=== PATIENT | female | born 1970 | race Hispanic/Latino ===

== ENCOUNTER 2017-07-21 12:55 | Outpatient (CLI) | payer BC ==
[2017-07-21 13:21] LABS: Mean Platelet Volume 6.8 fL (7.4-10.4); Red Blood Cell (RBC) Count 4.74 mill/uL (4.20-5.40); White Blood Cell (WBC) Count 5.5 thou/uL (4.8-10.8)
[2017-07-21 13:54] LABS: Anion Gap 13 mmol/L (10-20); BUN (Urea Nitrogen) 8 mg/dL (7.0-18.7); Calc. Creatinine Clearance 0 mL/min (70-130); Calcium 9.4 mg/dL (7.8-10.44); Carbon Dioxide 26 mmol/L (22-29); Chloride 105 mmol/L (98-107); Estimated GFR-MDRD 72
--- NOTE | 2017-07-23 17:47 | EKG ---
Test Reason : Blood Pressure : / mmHG Vent. Rate : 084 BPM Atrial Rate : 084 BPM P-R Int : 152 ms QRS Dur : 080 ms QT Int : 404 ms P-R-T Axes : 048 102 028 degrees QTc Int : 477 ms Normal sinus rhythm Rightward axis Cannot rule out Inferior infarct , age undetermined Abnormal ECG No previous ECGs available Confirmed by GUY SANDOVAL ([id number]) on 07/23/2017 5:46:50 PM Referred By: [email or web address] Confirmed By:GUY SANDOVAL
== END 2017-07-21 12:56 | disposition home or self-care (01) ==
LOC: LABBT 12:55
PROVIDERS: ATTEND Otolaryngology Plastic Surgery within the Head & Neck
DX: Z01.812 Encounter for preprocedural laboratory examination (principal); J03.91 Acute recurrent tonsillitis, unspecified; J35.3 Hypertrophy of tonsils with hypertrophy of adenoids; J30.9 Allergic rhinitis, unspecified
CPT/HCPCS: 80048; 84703; 85027; 93005; 93010

== ENCOUNTER 2017-07-26 07:29 | Day surgery (SDC) | payer BC ==
[2017-07-21 13:28] VITALS: BMI 41.1
[2017-07-26] MEDS ORDERED: Fentanyl 100 MCG/2 ML VIAL ONE ×3 (10:13→11:09)
[2017-07-26] MEDS ORDERED: Succinylcholine Chloride 20 MG/ML 10 ml SYRINGE FS ONE (10:32)
[2017-07-26] MEDS ORDERED: Propofol 200 MG/20 ML VIAL ONE (10:32)
[2017-07-26] MEDS ORDERED: Lidocaine 2% PF 10 ML AMP (For Epidural Use) ONE (10:32)
[2017-07-26] MEDS ORDERED: Ondansetron HCl/PF 4 MG/2 ML Vial ONE (10:32)
[2017-07-26] MEDS ORDERED: Morphine 4 MG/ML Carpuject ONE (11:56)
--- NOTE | 2017-07-27 10:12 | OP ---
DATE OF PROCEDURE: 07/26/2017 PREOPERATIVE DIAGNOSES: 1. Chronic adenotonsillitis. 2. Adenotonsillar hypertrophy. POSTOPERATIVE DIAGNOSES: 1. Chronic adenotonsillitis. 2. Adenotonsillar hypertrophy. PROCEDURES PERFORMED: Tonsillectomy and adenoidectomy. SURGEON: Huey Haywood M.D. ESTIMATED BLOOD LOSS: Less than 5 mL COMPLICATIONS: None. ANESTHESIA: GETA. PROCEDURE IN DETAIL: After consent was obtained, the patient was identified, brought to the operatin g room, and placed on the operating table in the supine position. General endotracheal anesthesia an d intravenous access was obtained and we proceeded with positioning the patient for oropharyngeal landis rgery. Oropharyngeal exposure was obtained with a Margaret-Felipe mouth gag after a head drape was place d and secured with a towel clip. The Margaret-Felipe mouth gag was then suspended from the Teague tray and palatal elevation was achieved with a red rubber catheter. The right tonsil was addressed first. W e used a curved Allis to grasp the tonsil and retract it medially as an anterior pillar incision was made. The retrotonsillar fascial plane was then established and blunt dissection was performed with the suction cautery. Blood vessels were anticipated, identified, and cauterized as they were encoun tered. Ultimately, dissection was carried to the posterior tonsillar pillar mucosa which was incised hemostatically, as well as the base of tongue connection. The tonsil was then passed off as a speci men and bleeding points within the tonsillar bed were cauterized under direct visualization. We subs equently turned our attention to the contralateral side, where using a similar technique, a near demond ntical procedure was performed. Again, the tonsil was grasped and retracted medially with a curved A llis. The retrotonsillar fascial plane was established and while the anterior pillar was retracted m edially, the hemostatic blunt dissection of the tonsil with a suction cautery was performed with blo od vessels anticipated, identified, and cauterized as they were encountered. Again, dissection leena nued to the base of tongue and posterior tonsillar pillar mucosa which was incised in a hemostatic f ashion. The tonsillar beds were then carefully inspected and bleeding points were identified and cau terized with a suction cautery. After this portion of the procedure, hemostasis was completely obtai raphael. Under direct mirror visualization, we visualized the adenoid pad. Under direct mirror visualiza tion, we removed the bulk of the adenoid tissue with the adenoid curette. We then packed the nasopha rynx for an appropriate period of time with Deep-Synephrine saturated tonsillar sponges. After a alex od of observation, we removed the pack. Under indirect mirror visualization, we obtained hemostasis and vaporization of residual adenoid tissue with electrocautery. The patient's oral cavity was copio usly irrigated with iced saline and subsequently suctioned. After completion of the procedure, the n davina cavity and oropharynx were irrigated and suctioned as were the gastric contents. The patient wa s then awakened and transferred to the recovery room where the patient remained in stable condition prior to discharge to Day Stay.
== END 2017-07-26 13:00 | disposition home or self-care (01) ==
LOC: SDC 07:29
PROVIDERS: ATTEND Otolaryngology Plastic Surgery within the Head & Neck
PROC: 0CTQ0ZZ Resection of Adenoids, Open Approach (ICD-10-PCS; principal; 2017-07-26)
PROC: 0CTPXZZ Resection of Tonsils, External Approach (ICD-10-PCS; principal; 2017-07-26)
DX: J35.3 Hypertrophy of tonsils with hypertrophy of adenoids (principal); I10 Essential (primary) hypertension; Z88.9 Allergy status to unspecified drugs, medicaments and biological substances; Z79.899 Other long term (current) drug therapy
CPT/HCPCS: 88304; 96374; J0131; J2001; J2270; J2405; J2704; J3010

== ENCOUNTER 2018-11-22 08:07 | Outpatient (CLI) | payer BC | END 2018-11-22 08:08 | disposition home or self-care (01) | LOC: BICMAMMO 08:07 | PROVIDERS: ATTEND Family Medicine | DX: Z12.31 Encounter for screening mammogram for malignant neoplasm of breast (principal) | CPT/HCPCS: 77063; 77067 ==

== ENCOUNTER 2022-02-14 14:15 | Outpatient (CLI) | payer BC | END 2022-02-14 14:16 | disposition home or self-care (01) | LOC: BICRAD 14:15 | PROVIDERS: ATTEND Nurse Practitioner Family | DX: M25.561 Pain in right knee (principal); M79.672 Pain in left foot ==

== ENCOUNTER 2023-10-27 07:58 | Outpatient (CLI) | payer BC | END 2023-10-27 07:59 | disposition home or self-care (01) | LOC: BICMAMMO 07:58 | PROVIDERS: ATTEND Family Medicine | DX: Z12.31 Encounter for screening mammogram for malignant neoplasm of breast (principal) | CPT/HCPCS: 77063; 77067 ==